=== PATIENT | male | born 1970 | race Caucasian/White ===

== ENCOUNTER 2018-03-30 10:04 | Emergency (ER) | payer SELFPAY ==
[2018-03-30 10:56] LABS: Protime INR 1.16
[2018-03-30 10:57] LABS: Absolute Lymphocytes (CBC) 3.6 K/uL (0.7-4.9); Basophils % 0.4 % (0-1.3); Eosinophils % 1.5 % (0-4.4); Hematocrit 43.9 % (39.6-49.0); Lymphocytes % 46.7 % (15.3-44.8); MCH 32.9 pg (27.0-35.0); MCV 94.1 fL (80-100); MPV 7.3 fL (7.6-11.3); RBC Red Blood Cell Count 4.66 M/uL (4.33-5.43)
[2018-03-30] MEDS ORDERED: NA CHLORIDE 0.9% 1,000 ML ONE (11:03)
[2018-03-30 11:25] LABS: ALT/SGPT 64 U/L (12-78); AST/SGOT 30 U/L (15-37); Albumin 4.4 g/dL (3.4-5.0); Alkaline Phosphatase 87 U/L (45-117); BUN Blood Urea Nitrogen 19 mg/dL (7-18); Bicarbonate 23 mmol/L (21-32); Bilirubin Direct 0.1 mg/dL (0-0.2); Bilirubin Total 0.5 mg/dL (0.2-1.0); Creatine Phosphokinase 85 U/L (39-308); Glucose Level 106 mg/dL (74-106); Magnesium 2.1 mg/dL (1.8-2.4); NT PRO-BNP 18 pg/mL (<125); Potassium 3.6 mmol/L (3.5-5.1); Protein, Total 7.7 g/dL (6.4-8.2); Sodium Level 139 mmol/L (136-145); Troponin (Emerg Dept Use Only) < 0.02 ng/mL (0.0-0.045)
--- NOTE | 2018-03-30 12:06 | RAD REPORT ---
EXAM DESCRIPTION: CT - Head Brain Wo Cont - 03/30/2018 11:54 am CLINICAL HISTORY: off balance Drowsiness COMPARISON: No comparisons TECHNIQUE: All CT scans are performed using dose optimization technique as appropriate and may inclu de automated exposure control or mA/KV adjustment according to patient size. FINDINGS: No intracranial hemorrhage, hydrocephalus or extra-axial fluid collection.No areas of brai n edema or evidence of midline shift. The paranasal sinuses and mastoids are clear. The calvarium is intact. IMPRESSION: No acute intracranial abnormality.
--- NOTE | 2018-03-30 12:18 | EKG ---
Test Date: 2018-03-30 Test Time: 10:19:42 Junior Data Analyst: DELROY MEASUREMENT RESULTS: Intervals: Rate: 86 MT: 162 QRSD: 78 QT: 346 QTc: 414 [place]: P: 36 MT: 162 QRS: 55 T: 54 INTERPRETIVE STATEMENTS: Normal sinus rhythm Normal ECG Compared to ECG 04/22/1999 15:29:00 ST (T wave) deviation no longer present Electronically Signed On 03-30-18 12:17:42 CDT by Lee Ochoa
--- NOTE | 2018-03-30 13:35 | ER ---
Nurse's Notes [facility] Name: Deshawn Herrera III Age: 48 yrs Sex: Male : 1970 Arrival Date: 03/30/2018 Time: 10:12 Bed 16 Private MD: Diagnosis: Benign paroxysmal vertigo;Dehydration Presentation: 03/30 10:00 Presenting complaint: EMS states: Pt. is a 48 yr. old male, A \T\ O x4. 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 Speech was impaired and his tongue went to the left. BS 113, 12-Lead was normal. He takes Metformin and Adderall. Transition of care: patient was not received from another setting of care. Onset of symptoms was March 30, 2018 at 09:30. Risk Assessment: Do you want to hurt yourself or someone else? Patient reports no desire to harm self or others. Initial Sepsis Screen: Does the patient meet any 2 criteria? No. Patient's initial sepsis screen is negative. Does the patient have a suspected source of infection? No. Patient's initial sepsis screen is negative. Care prior to arrival: None. 10:00 Method Of Arrival: EMS: [facility] 10:00 Acuity: CADENCE 3 rb1 Triage Assessment: 10:00 General: Appears in no apparent distress. comfortable, Behavior is calm, cooperative, rb1 Denies fever. Pain: Denies pain. Neuro: Level of Consciousness is awake, alert, obeys commands, Oriented to person, place, time, situation, [employer] Operator are equal bilaterally Moves all extremities. Gait is steady, Speech is normal, Facial symmetry appears normal, Pupils are PERRLA. Neuro: Reports dizziness. Cardiovascular: Capillary refill < 3 seconds is brisk in bilateral fingers Rhythm is regular. Respiratory: Airway is patent Respiratory effort is even, unlabored, Respiratory pattern is regular, symmetrical. GI: No signs and/or symptoms were reported involving the gastrointestinal system. : No signs and/or symptoms were reported regarding the genitourinary system. Derm: Skin is pink, warm \T\ dry. Musculoskeletal: Range of motion: intact in all extremities. Historical: - Allergies: 10:00 Unknown medication for joint pain; rb1 - Home Meds: 10:00 Alprazolam Oral [Active]; Glipizide Oral [Active]; Adderall XR Oral [Active]; Metformin rb1 Oral [Active]; - PMHx: 10:00 Anxiety; GERD; rb1 - PSHx: 10:00 None; rb1 - Immunization history:: Adult Immunizations up to date. - Social history:: Smoking status: Patient uses tobacco products, smokes one-half pack cigarettes per day. - Ebola Screening: : Patient negative for fever greater than or equal to 101.5 degrees Fahrenheit, and additional compatible Ebola Virus Disease symptoms. Screenin:00 Abuse screen: Denies threats or abuse. Nutritional screening: No deficits noted. rb1 Tuberculosis screening: No symptoms or risk factors identified. Fall Risk No fall in past 12 months (0 pts). No secondary diagnosis (0 pts). IV access (20 points). Ambulatory Aid- None/Bed Rest/Nurse Assist (0 pts). Gait- Normal/Bed Rest/Wheelchair (0 pts) Mental Status- Oriented to own ability (0 pts). Total Mayre Fall Scale indicates No Risk (0-24 pts). Assessment: 10:00 General: See triage. rb1 11:00 Reassessment: Patient appears in no apparent distress at this time. Patient and/or rb1 family updated on plan of care and expected duration. Pain level reassessed. Patient is alert, oriented x 3, equal unlabored respirations, skin warm/dry/pink. 11:46 Reassessment: Pt. went to CT. rb1 12:06 Reassessment: Patient appears in no apparent distress at this time. Patient and/or rb1 family updated on plan of care and expected duration. Pain level reassessed. Patient is alert, oriented x 3, equal unlabored respirations, skin warm/dry/pink. 13:05 Reassessment: Patient appears in no apparent distress at this time. No changes from rb1 previously documented assessment. 13:35 Reassessment: Patient appears in no apparent distress at this time. Friend at bedside. rb1 Patient states symptoms have improved. Vital Signs: 10:00 BP 136 / 92; Pulse 85; Resp 20; Pulse Ox 97% on R/A; Weight 95.25 kg (R); Height 5 ft. rb1 11 in. (180.34 cm) (R); Pain 0/10; 11:00 BP 131 / 92; Pulse 89; Resp 16; Pulse Ox 100% on R/A; Pain 0/10; rb1 12:00 BP 137 / 90; Pulse 87; Resp 17; Pulse Ox 100% on R/A; Pain 0/10; rb1 13:00 BP 129 / 82; Pulse 81; Resp 18; Pulse Ox 99% on R/A; rb1 13:31 BP 136 / 84; Pulse 81; Resp 17; Pulse Ox 99% on R/A; jb1 13:42 BP 124 / 94; Pulse 83; Resp 18; Pulse Ox 98% on R/A; jb1 10:00 Body Mass Index 29.29 (95.25 kg, 180.34 cm) rb1 ED Course: 10:00 Patient has correct armband on for positive identification. Placed in gown. Bed in low rb1 position. Call light in reach. Side rails up X 1. newspaper stuffer on. Pulse ox on. NIBP on. 10:05 Arm band placed on left wrist. rb1 10:12 Patient arrived in ED. ss 10:12 Aurora Zamarripa, RN is Primary Nurse. rb1 10:13 Silverio Smith MD is Attending Physician. gs 10:15 Triage completed. rb1 10:30 Initial lab(s) drawn, by hi, sent to lab. Inserted saline lock: 22 gauge in left jb1 antecubital area, using aseptic technique. Blood collected. 10:58 Note: PT REFUSED CXR, NOTIFIED DR. SMITH . jb2 11:13 Urine collected: clean catch specimen, cloudy, diego colored. jb1 11:28 EKG done, by technology coordinator. at1 11:48 CT completed. Patient tolerated procedure well. Patient moved to CT via wheelchair. sj Patient moved back from CT. 11:54 CT Head Brain wo Cont In Process Unspecified. EDMS 13:52 No provider procedures requiring assistance completed. IV discontinued, intact, ss bleeding controlled, No redness/swelling at site. Pressure dressing applied. Administered Medications: 11:00 Drug: NS 0.9% 1000 ml Route: IV; Rate: 1000 ml; Site: left antecubital; rb1 12:00 Follow up: IV Status: Completed infusion rb1 Point of Care Testing: Blood Glucose: 10:05 Blood Glucose: 97 mg/dL; rb1 Ranges: Outcome: 13:34 Discharge ordered by . gs 13:52 Discharged to home ambulatory. ss 13:52 Condition: good 13:52 Discharge instructions given to patient, Instructed on discharge instructions, follow up and referral plans. medication usage, Demonstrated understanding of follow-up care. 13:53 Patient left the ED. Signatures: Dispatcher [employer] EDPrashanth Tapia1 Yuri Montelongo2 Yenni Lewis Shelby, RN RN ss Polly Martinez, aerospace control and warning systems EKG Tat1 Auorra Zamarripa RN RN rb1 Silverio Smith MD MD
--- NOTE | 2018-03-30 13:35 | EDPHYS ---
Physician Documentation [facility] Name: Deshawn Herrera III Age: 48 yrs Sex: Male : 1970 Arrival Date: 03/30/2018 Time: 10:12 Bed 16 Private MD: ED Physician Silverio Smith HPI: 03/30 14:56 This 48 yrs old Male presents to ER via EMS with complaints of Dizziness. gs 14:56 The patient has experienced near-syncope, felt dizzy. Onset: The symptoms/episode gs began/occurred acutely, just prior to arrival. Duration: This was a single episode, resolved. Context: occurred at work. Associated injury: The patient did not suffer any apparent associated injury. Associated signs and symptoms: Pertinent negatives: abdominal pain, chest pain. Current symptoms: Currently, the patient is not experiencing any symptoms, the patient feels back to baseline. The patient has not experienced similar symptoms in the past. The patient has not recently seen a physician. Historical: - Allergies: 10:00 Unknown medication for joint pain; rb1 - Home Meds: 10:00 Alprazolam Oral [Active]; Glipizide Oral [Active]; Adderall XR Oral [Active]; Metformin rb1 Oral [Active]; - PMHx: 10:00 Anxiety; GERD; rb1 - PSHx: 10:00 None; rb1 - Immunization history:: Adult Immunizations up to date. - Social history:: Smoking status: Patient uses tobacco products, smokes one-half pack cigarettes per day. - Ebola Screening: : Patient negative for fever greater than or equal to 101.5 degrees Fahrenheit, and additional compatible Ebola Virus Disease symptoms. ROS: 14:56 Cardiovascular: Negative for chest pain, palpitations. gs 14:56 Respiratory: Negative for pleurisy, shortness of breath. 14:56 All other systems are negative. Exam: 14:56 Head/Face: Normocephalic, atraumatic. Eyes: Pupils equal round and reactive to light, gs extra-ocular motions intact. Lids and lashes normal. Conjunctiva and sclera are non-icteric and not injected. Cornea within normal limits. Periorbital areas with no swelling, redness, or edema. ENT: Nares patent. No nasal discharge, no septal abnormalities noted. Tympanic membranes are normal and external auditory canals are clear. Oropharynx with no redness, swelling, or masses, exudates, or evidence of obstruction, uvula midline. Mucous membranes moist. Neck: Trachea midline, no thyromegaly or masses palpated, and no cervical lymphadenopathy. Supple, full range of motion without nuchal rigidity, or vertebral point tenderness. No Meningismus. Chest/axilla: Normal chest wall appearance and motion. Nontender with no deformity. No lesions are appreciated. Cardiovascular: Regular rate and rhythm with a normal S1 and S2. No gallops, murmurs, or rubs. Normal PMI, no JVD. No pulse deficits. Respiratory: Lungs have equal breath sounds bilaterally, clear to auscultation and percussion. No rales, rhonchi or wheezes noted. No increased work of breathing, no retractions or nasal flaring. Abdomen/GI: Soft, non-tender, with normal bowel sounds. No distension or tympany. No guarding or rebound. No evidence of tenderness throughout. Back: No spinal tenderness. No costovertebral tenderness. Full range of motion. Skin: Warm, dry with normal turgor. Normal color with no rashes, no lesions, and no evidence of cellulitis. MS/ Extremity: Pulses equal, no cyanosis. Neurovascular intact. Full, normal range of motion. Neuro: Awake and alert, GCS 15, oriented to person, place, time, and situation. Cranial nerves II-XII grossly intact. Motor strength 5/5 in all extremities. Sensory grossly intact. Cerebellar exam normal. Normal gait. 14:56 ECG was reviewed by the Attending Physician. Vital Signs: 10:00 BP 136 / 92; Pulse 85; Resp 20; Pulse Ox 97% on R/A; Weight 95.25 kg (R); Height 5 ft. rb1 11 in. (180.34 cm) (R); Pain 0/10; 11:00 BP 131 / 92; Pulse 89; Resp 16; Pulse Ox 100% on R/A; Pain 0/10; rb1 12:00 BP 137 / 90; Pulse 87; Resp 17; Pulse Ox 100% on R/A; Pain 0/10; rb1 13:00 BP 129 / 82; Pulse 81; Resp 18; Pulse Ox 99% on R/A; rb1 13:31 BP 136 / 84; Pulse 81; Resp 17; Pulse Ox 99% on R/A; jb1 13:42 BP 124 / 94; Pulse 83; Resp 18; Pulse Ox 98% on R/A; jb1 10:00 Body Mass Index 29.29 (95.25 kg, 180.34 cm) rb1 MDM: 10:30 Patient medically screened. 14:56 Differential Diagnosis: cardiac arrhythmia, emotional response, idiopathic syncope, gs vasovagal episode, vertigo. Data reviewed: vital signs, nurses notes. 15:01 Counseling: I had a detailed discussion with the patient and/or guardian regarding: the gs historical points, exam findings, and any diagnostic results supporting the discharge/admit diagnosis, lab results, radiology results, the need for outpatient follow up, to return to the emergency department if symptoms worsen or persist or if there are any questions or concerns that arise at home. 03/30 10:33 Order name: Basic Metabolic Panel; Complete Time: 11:28 03/30 10:33 Order name: CBC with Diff; Complete Time: 11:28 03/30 10:33 Order name: CPK; Complete Time: 11:28 03/30 10:33 Order name: LFT's; Complete Time: 11:28 03/30 10:33 Order name: Magnesium; Complete Time: 11:28 03/30 10:33 Order name: NT PRO-BNP; Complete Time: 11:28 03/30 10:33 Order name: PT-INR; Complete Time: 11:28 03/30 10:33 Order name: Troponin (emerg Dept Use Only); Complete Time: 11:28 03/30 10:33 Order name: EKG; Complete Time: 10:33 03/30 10:33 Order name: Cardiac monitoring; Complete Time: 10:50 03/30 11:29 Order name: CT Head Brain wo Cont; Complete Time: 13:00 03/30 12:41 Order name: Urine Dipstick--Ancillary (enter results) 03/30 10:33 Order name: EKG - Nurse/Tech; Complete Time: 10:50 03/30 10:33 Order name: IV Saline Lock; Complete Time: 10:50 03/30 10:33 Order name: Labs collected and sent; Complete Time: 10:50 03/30 10:33 Order name: O2 Per Protocol; Complete Time: 10:50 03/30 10:33 Order name: O2 Sat Monitoring; Complete Time: 10:50 03/30 10:33 Order name: Urine Dipstick-Ancillary (obtain specimen); Complete Time: 11:13 gs EC:56 Rate is 86 beats/min. Rhythm is regular. NC interval is normal. QRS interval is normal. gs T waves are Normal. No ST changes noted. Clinical impression: Normal ECG. Interpreted by me. Administered Medications: 11:00 Drug: NS 0.9% 1000 ml Route: IV; Rate: 1000 ml; Site: left antecubital; rb1 12:00 Follow up: IV Status: Completed infusion rb1 Point of Care Testing: Blood Glucose: 10:05 Blood Glucose: 97 mg/dL; rb1 Ranges: Critical Glucose Levels:Adult <50 mg/dl or >400 mg/dl <40 mg/dl or >180 mg/dl Disposition: 03/30/18 13:34 Discharged to Home. Impression: Benign paroxysmal vertigo, Dehydration. - Condition is Stable. - Discharge Instructions: Benign Positional Vertigo, Dehydration, Adult. - Work release form, Medication Reconciliation Form, Thank You Letter, Antibiotic Education, Prescription Opioid Use form. - Follow up: Private Physician; When: 2 - 3 days; Reason: Re-evaluation by your physician. Signatures: Dispatcher [employer] EDDE Rosario Paredes RN RN ss Aurora Zamarripa RN RN rb1 Silverio Smith MD MD Corrections: (The following items were deleted from the chart) 13:53 13:34 03/30/2018 13:34 Discharged to Home. Impression: Benign paroxysmal vertigo; ss Dehydration. Condition is Stable. Forms are Medication Reconciliation Form, Thank You Letter, Antibiotic Education, Prescription Opioid Use. Follow up: Private Physician; When: 2 - 3 days; Reason: Re-evaluation by your physician. gs
[2018-03-30 14:21] LABS: Urine Blood NEGATIVE (NEG); Urine Glucose NEGATIVE (NEG); Urine Protein NEGATIVE (NEG); Urine pH 5.5 (5.0-7.0)
== END 2018-03-30 13:53 | disposition home or self-care (01) ==
LOC: ER 10:04
DX: E86.0 Dehydration (principal); F41.9 Anxiety disorder, unspecified; F17.210 Nicotine dependence, cigarettes, uncomplicated
CPT/HCPCS: 36415; 70450; 80048; 80076; 81003; 82550; 82962; 83735; 83880; 84484; 85025; 85610; 93005; 96360; 99285; J7030

== ENCOUNTER 2020-02-05 15:09 | Emergency (ER) | payer SELFPAY ==
[2020-02-05] MEDS ORDERED: CYCLOBENZAPRINE 10 MG TAB ONE (17:19)
[2020-02-05] MEDS ORDERED: HYDROCODONE/APAP 10/325 TAB ONE (17:20)
--- NOTE | 2020-02-05 17:31 | RAD REPORT ---
EXAM DESCRIPTION: RAD - Lumbar Spine 3 Views - 02/05/2020 5:11 pm CLINICAL HISTORY: Back pain FINDINGS: The alignment of the lumbar spine is satisfactory. No fracture or dislocation is seen. Mild spondylosis involves the lumbar spine
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
[2020-02-05 18:26] VITALS: BP 134/99; TEMP 99; O2SAT 100
== END 2020-02-05 18:21 | disposition home or self-care (01) ==
LOC: ER 15:09
DX: M54.5 Low back pain (principal); V49.40XA Driver injured in collision with unspecified motor vehicles in traffic accident, initial encounter; F41.9 Anxiety disorder, unspecified; K21.9 Gastro-esophageal reflux disease without esophagitis; F17.210 Nicotine dependence, cigarettes, uncomplicated; Z88.8 Allergy status to other drugs, medicaments and biological substances
CPT/HCPCS: 72100; 99284

== ENCOUNTER 2020-02-05 20:25 | Emergency (ER) | payer SELFPAY ==
[2020-02-05 21:30] LABS: Basophils % 0.7 % (0-1.3); Hematocrit 41.8 % (39.6-49.0); Lymphocytes % 27.2 % (15.3-44.8); MPV 7.9 fL (7.6-11.3); RBC Red Blood Cell Count 4.47 M/uL (4.33-5.43)
[2020-02-05 21:41] LABS: Albumin 3.7 g/dL (3.4-5.0); Bilirubin Direct 0.2 mg/dL (0-0.2); Bilirubin Total 1.3 mg/dL (0.2-1.0); Potassium 3.1 mmol/L (3.5-5.1); Protein, Total 6.4 g/dL (6.4-8.2)
[2020-02-05] MEDS ORDERED: POTASSIUM 25 MEQ EFFERV TAB ONE (22:13)
[2020-02-05] MEDS ORDERED: NA CHLORIDE 0.9% 1,000 ML ONE (22:13)
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
--- NOTE | 2020-02-05 23:25 | EDPHYS ---
Physician Documentation [facility] Name: Deshawn Herrera III Age: 49 yrs Sex: Male : 1970 Arrival Date: 02/05/2020 Time: 20:28 Bed 7 Private MD: ED Physician Austin Hernandez HPI: 02/04 23:26 This 49 yrs old Male presents to ER via EMS with complaints of Dehydration. tw4 23:26 The patient presents with generalized weakness. Onset: The symptoms/episode tw4 began/occurred today. Context: occurred at home. Modifying factors: The symptoms are alleviated by nothing, the symptoms are aggravated by nothing. Associated signs and symptoms: The patient has no apparent associated signs or symptoms. Severity of symptoms: At their worst the symptoms were moderate in the emergency department the symptoms are unchanged. The patient has not experienced similar symptoms in the past. Historical: - Allergies: 20:45 Celebrex; mg2 20:45 Unknown medication for joint pain; mg2 - Home Meds: 20:45 Metformin Oral [Active]; mg2 - PMHx: 20:45 Anxiety; GERD; mg2 - Immunization history:: Flu vaccine status is unknown. - Social history:: Smoking status: unknown. ROS: 23:26 Constitutional: Negative for fever, chills, and weight loss, Eyes: Negative for injury, tw4 pain, redness, and discharge, Cardiovascular: Negative for chest pain, palpitations, and edema, Respiratory: Negative for shortness of breath, cough, wheezing, and pleuritic chest pain, Abdomen/GI: Negative for abdominal pain, nausea, vomiting, diarrhea, and constipation, MS/Extremity: Negative for injury and deformity, Skin: Negative for injury, rash, and discoloration. 23:26 Neuro: Positive for weakness. Exam: 23:26 Constitutional: This is a well developed, well nourished patient who is awake, alert, tw4 and in no acute distress. Head/Face: Normocephalic, atraumatic. Chest/axilla: Normal chest wall appearance and motion. Nontender with no deformity. No lesions are appreciated. Cardiovascular: Regular rate and rhythm with a normal S1 and S2. No gallops, murmurs, or rubs. Normal PMI, no JVD. No pulse deficits. Respiratory: Lungs have equal breath sounds bilaterally, clear to auscultation and percussion. No rales, rhonchi or wheezes noted. No increased work of breathing, no retractions or nasal flaring. Abdomen/GI: Soft, non-tender, with normal bowel sounds. No distension or tympany. No guarding or rebound. No evidence of tenderness throughout. Back: No spinal tenderness. No costovertebral tenderness. Full range of motion. MS/ Extremity: Pulses equal, no cyanosis. Neurovascular intact. Full, normal range of motion. Neuro: Awake and alert, GCS 15, oriented to person, place, time, and situation. Cranial nerves II-XII grossly intact. Motor strength 5/5 in all extremities. Sensory grossly intact. Cerebellar exam normal. Normal gait. Psych: Awake, alert, with orientation to person, place and time. Behavior, mood, and affect are within normal limits. Vital Signs: 20:42 BP 109 / 82; Pulse 117; Resp 18; Temp 98; Pulse Ox 100% on R/A; mg2 20:46 Weight 102.06 kg; Height 5 ft. 11 in. (180.34 cm); mg2 20:46 Body Mass Index 31.38 (102.06 kg, 180.34 cm) mg2 MDM: 21:04 Patient medically screened. tw4 23:26 Differential diagnosis: generalized weakness, hypovolemia, idiopathic dizziness, tw4 . Data reviewed: vital signs, nurses notes. Data interpreted: Pulse oximetry: Interpretation: normal. Counseling: I had a detailed discussion with the patient and/or guardian regarding: the historical points, exam findings, and any diagnostic results supporting the discharge/admit diagnosis. 02/04 20:36 Order name: Basic Metabolic Panel; Complete Time: 21:57 02/04 21:58 Interpretation: Normal except: K 3.1; CL 110; CO2 19; GLUC 163; CRE 1.48; GFR 50. tw02/04 20:36 Order name: CBC with Diff; Complete Time: 21:57 02/04 21:58 Interpretation: Within normal limits. tw02/04 20:36 Order name: Hepatic Function; Complete Time: 21:57 02/04 21:58 Interpretation: Normal except: AST 44; BILIT 1.3. 02/04 20:36 Order name: Lipase; Complete Time: 21:57 tw02/04 21:58 Interpretation: Within normal limits: LIP 180. [facility] 02/04 20:57 Order name: COVID-19 [facility] 02/04 20:36 Order name: IV Saline Lock; Complete Time: 20:37 [facility] 02/04 20:57 Order name: Flu [facility] 02/04 20:57 Order name: Strep [facility] 02/04 21:22 Order name: Creatine Phosphokinase; Complete Time: 21:57 [facility] 02/04 21:58 Interpretation: Within normal limits: CPK 134. [facility] 02/04 21:25 Order name: Glucose, Ancillary Testing; Complete Time: 21:57 [facility] 02/04 21:58 Interpretation: Within normal limits: GLUC,ANCIL 173. [facility] 02/04 22:02 Order name: Throat Culture [facility] 02/04 20:36 Order name: Labs collected and sent; Complete Time: 21:13 tw4 Administered Medications: 22:28 Drug: NS 0.9% 1000 ml Route: IV; Rate: 1 bolus; Site: right forearm; mg2 22:29 Drug: Potassium Effervescent Tablet 50 mEq Route: PO; mg2 Disposition: 02/05/20 23:25 Discharged to Home. Impression: Dehydration, Hypokalemia. - Condition is Stable. - Discharge Instructions: Dehydration, Adult, Hypokalemia. - Medication Reconciliation Form, Thank You Letter, Antibiotic Education, Prescription Opioid Use form. - Follow up: Private Physician; When: Upon discharge from the Emergency Department; Reason: Recheck today's complaints, Continuance of care, Re-evaluation by your physician. - Problem is new. - Symptoms have improved. Signatures: Dispatcher [employer] [facility] Austin Hernandez MD MD tw4 Rai Mario RN RN mg2 Corrections: (The following items were deleted from the chart) 21:22 20:57 CREATINE PHOSPHOKINASE+[id number] ordered. [facility] 23:39 23:25 02/05/2020 23:25 Discharged to Home. Impression: Dehydration; Hypokalemia. mg2 Condition is Stable. Forms are Medication Reconciliation Form, Thank You Letter, Antibiotic Education, Prescription Opioid Use. Follow up: Private Physician; When: Upon discharge from the Emergency Department; Reason: Recheck today's complaints, Continuance of care, Re-evaluation by your physician. Problem is new. Symptoms have improved. tw4
[2020-02-05 23:45] VITALS: BP 109/82; TEMP 98; O2SAT 100
== END 2020-02-05 23:39 | disposition home or self-care (01) ==
LOC: ER 20:25
DX: E86.0 Dehydration (principal); Z20.828 Contact with and (suspected) exposure to other viral communicable diseases; E87.6 Hypokalemia; F41.9 Anxiety disorder, unspecified; Z88.8 Allergy status to other drugs, medicaments and biological substances
CPT/HCPCS: 36415; 80048; 80076; 82550; 82947; 83690; 85025; 87070; 87081; 87804; 99283; J7030; U0001